=== PATIENT | female | born 1990 | race Caucasian/White ===

== ENCOUNTER 2017-07-31 08:59 | Day surgery (SDC) | payer OTHER ==
[~2017-07-31] VITALS: Ht 167.6 cm; Wt 63.5 kg
[~2017-07-31 08:59] MED LIST: IBUPROFEN800 MG PO; SUBOXONE 8 MG-1 EAC2 SL; TYLENOL EXTRA500 MG PO
[2017-07-31 09:42] VITALS: BP 118/58
[2017-07-31] MEDS ORDERED: IBUPROFEN800 MG PO (12:58)
[2017-07-31] MEDS ORDERED: MONODOX100 MG PO (12:58)
[2017-07-31 14:10] VITALS: BP 111/58
[2017-07-31 14:50] VITALS: BP 104/62
== END 2017-07-31 14:58 | disposition home or self-care (01) ==
LOC: SDC 08:59
PROC: 10D17ZZ Extraction of Products of Conception, Retained, Via Natural or Artificial Opening (ICD-10-PCS; principal; 2017-07-31)
DX: O02.1 Missed abortion (principal); Z3A.09 9 weeks gestation of pregnancy; D82.1 Di George's syndrome; Z87.891 Personal history of nicotine dependence
CPT/HCPCS: 86850; 86900; 86901; 88305; J1100; J1885; J2250; J2405; J3010

== ENCOUNTER 2018-06-14 08:00 | Inpatient (IN) | payer OTHER ==
[~2018-06-14] VITALS: Ht 165.1 cm; Wt 89.4 kg
[2018-06-14] VITALS (20 sets, daily range): BP systolic 105–149; BP diastolic 55–87
[~2018-06-14 08:00] MED LIST changes: +MONODOX100 MG PO
[2018-06-14] MEDS ORDERED: PRENATAL TABLE1 EAC3 PO (08:34)
[2018-06-14 09:54] LABS: AMPHETAMINE NEGATIVE (500 ng/mL); BARBITURATES NEGATIVE (200 ng/mL); BENZODIAZEPINES NEGATIVE (150 ng/mL); BUPRENORPHINE PRESUMPTIVE POSITIVE (10 ng/mL); COCAINE NEGATIVE (150 ng/mL); METHADONE NEGATIVE (200 ng/mL); METHAMPHETAMINE NEGATIVE (500 ng/mL); OPIATES (MORPHINE) NEGATIVE (100 ng/mL); OXYCODONE NEGATIVE (100 ng/mL); PHENCYCLIDINE NEGATIVE (25 ng/mL); PROPOXYPHENE NEGATIVE (300 ng/mL); THC CANNABINOIDS NEGATIVE (50 ng/mL); TRICYCLIC ANTIDEPRESSANTS NEGATIVE (300 ng/mL)
[2018-06-14 09:58] LABS: BASOPHIL (%) 0.3 % (0-1); EOSINOPHIL (%) 1.3 % (0-5); EOSINOPHIL COUNT 0.1 K/uL (0-0.3); HEMATOCRIT 35.4 % (36.0-46.0); HEMOGLOBIN 12.2 G/DL (11.9-15.5); IMMATURE GRANULOCYTE (%) 1.1 % (0.0-0.7); LYMPHOCYTE (%) 16.3 % (15-42); LYMPHOCYTE COUNT 1.8 K/uL (1.0-2.8); MCH 29.8 PG (29.0-34.0); MCHC 34.5 G/DL (30.0-36.0); MCV 86.6 FL (83-99); MONOCYTE (%) 9.3 % (3-12); NEUTROPHIL (%) 71.7 % (45-76); NEUTROPHIL COUNT 7.7 K/uL (1.8-6.4); PLATELET COUNT 216 K/uL (156-360); RBC DIS.WIDTH-CV 13.8 % (11.8-14.6); RBC DIS.WIDTH-SD 42.7 % (39-53); RED BLOOD COUNT 4.09 M/uL (3.80-5.20); WHITE BLOOD COUNT 10.7 K/uL (4.1-10.2)
[2018-06-14 10:24] LABS: ALBUMIN 2.7 G/DL (3.2-4.8); ALKALINE PHOSPHATASE 126 IU/L (3-129); ALT (GPT) 9 IU/L (3-49); AST (GOT) 15 IU/L (2-34); CHLORIDE 106 MEQ/L (99-109); CREATININE 0.6 MG/DL (0.6-1.3); GFR ESTIMATE (CALCULATED) > 59 mL/min/; GLUCOSE 87 mg/dL (70-99); POTASSIUM 3.8 MEQ/L (3.7-5.4); SODIUM 138 MEQ/L (136-147); TOTAL BILIRUBIN 0.3 MG/DL (0.0-1.0); UREA NITROGEN (BUN) 4 mg/dL (9-23)
[2018-06-14 11:02] LABS: HEPATITIS B SURFACE ANTIGEN Nonreactive; HEPATITIS C ANTIBODY Nonreactive
[2018-06-14 11:03] LABS: ANTI-HEPATITIS A VIRUS (IGM) Nonreactive
[2018-06-14 11:04] LABS: ANTI-HEPATITIS B CORE (IGM) Nonreactive
[2018-06-15] VITALS (12 sets, daily range): BP systolic 105–134; BP diastolic 52–76
[2018-06-16 05:47] LABS: BASOPHIL (%) 0.3 % (0-1); EOSINOPHIL (%) 1.5 % (0-5); EOSINOPHIL COUNT 0.2 K/uL (0-0.3); HEMATOCRIT 31.9 % (36.0-46.0); HEMOGLOBIN 10.9 G/DL (11.9-15.5); IMMATURE GRANULOCYTE (%) 0.9 % (0.0-0.7); LYMPHOCYTE (%) 20.3 % (15-42); LYMPHOCYTE COUNT 2.3 K/uL (1.0-2.8); MCH 29.8 PG (29.0-34.0); MCHC 34.2 G/DL (30.0-36.0); MCV 87.2 FL (83-99); NEUTROPHIL COUNT 7.7 K/uL (1.8-6.4); PLATELET COUNT 176 K/uL (156-360); RBC DIS.WIDTH-CV 13.8 % (11.8-14.6); RED BLOOD COUNT 3.66 M/uL (3.80-5.20); WHITE BLOOD COUNT 11.3 K/uL (4.1-10.2)
[2018-06-16 23:00] VITALS: BP 137/76
[2018-06-17] MEDS ORDERED: Tylenol Extra Streng PO (09:01)
[2018-06-17] MEDS ORDERED: IBUPROFEN800 MG PO (09:01)
== END 2018-06-17 17:29 | disposition home or self-care (01) | DRG 775 ==
LOC: LDRP-OP → 2WEST 08:02 → LDRP-OP 09:01 → 2WEST 06-15 10:33
PROVIDERS: Advanced Practice Midwife
PROC: 10907ZC Drainage of Amniotic Fluid, Therapeutic from Products of Conception, Via Natural or Artificial Opening (ICD-10-PCS; principal; 2018-06-14)
PROC: 3E033VJ Introduction of Other Hormone into Peripheral Vein, Percutaneous Approach (ICD-10-PCS; 2018-06-15)
PROC: 00HU33Z Insertion of Infusion Device into Spinal Canal, Percutaneous Approach (ICD-10-PCS; 2018-06-15)
PROC: 3E0P7VZ Introduction of Hormone into Female Reproductive, Via Natural or Artificial Opening (ICD-10-PCS; 2018-06-15)
PROC: 0HQ9XZZ Repair Perineum Skin, External Approach (ICD-10-PCS; 2018-06-15)
PROC: 3E0R3BZ Introduction of Anesthetic Agent into Spinal Canal, Percutaneous Approach (ICD-10-PCS; 2018-06-15)
PROC: 10E0XZZ Delivery of Products of Conception, External Approach (ICD-10-PCS; 2018-06-15)
DX: O40.3XX0 Polyhydramnios, third trimester, not applicable or unspecified (principal); F11.20 Opioid dependence, uncomplicated; O99.324 Drug use complicating childbirth; O99.334 Smoking (tobacco) complicating childbirth; F17.200 Nicotine dependence, unspecified, uncomplicated; R51 Headache; O70.9 Perineal laceration during delivery, unspecified; O69.1XX0 Labor and delivery complicated by cord around neck, with compression, not applicable or unspecified; Z3A.39 39 weeks gestation of pregnancy; Z37.0 Single live birth
CPT/HCPCS: 80053; 80074; 85025; 86850; 86900; 86901; C1755; G0378; J0571; J3010; J7120